=== PATIENT | male | born 1955 | race Caucasian/White ===

== ENCOUNTER → 2021-05-06 | Day surgery (SDC) | payer OTHER ==
[~2021-05-06] VITALS: Ht 180.3 cm; Wt 97.5 kg
[~2021-05-06] MED LIST: ASPIRIN EC81 MG PO; DAILY VALUE1 EACH PO; MEDROL 4MG DOSEP4 MG PO; MOBIC7.5 MG PO; PRILOSEC20 MG PO; VITAMIN B122500 MCG PO; VITAMIN D350 MC3 PO
[2021-05-06 07:04] LABS: HCT 50.4 % (42.0-52.0); HGB 17.7 g/dl (13.2-18.0); MCH 32.8 pg (25.0-31.0); MCHC 35.1 g/dL (32.0-36.0); MCV 93.3 fL (78.0-100.0); RBC 5.4 M/uL (4.70-6.00); RDW 13.7 % (11.5-14.0); WBC 7.7 K/uL (4.0-10.5)
== END | disposition home or self-care (01) ==
LOC: FAS 06:07
PROVIDERS: Anesthesiology
DX: G56.01 Carpal tunnel syndrome, right upper limb (principal); K21.9 Gastro-esophageal reflux disease without esophagitis; Z79.82 Long term (current) use of aspirin; Z79.1 Long term (current) use of non-steroidal anti-inflammatories (NSAID); Z79.899 Other long term (current) drug therapy
CPT/HCPCS: 36415; J0690; J1100; J2250; J2405; J2704; J2795; J3010; J7120